=== PATIENT | male | born 1985 | race Two or more races ===

== ENCOUNTER 2018-05-09 08:06 | Emergency (ER) | payer OTHER ==
[~2018-05-09] VITALS: Ht 167.6 cm; Wt 71.7 kg
== END 2018-05-09 14:27 | disposition home or self-care (01) ==
LOC: ER 08:06
DX: R10.84 Generalized abdominal pain (principal)

== ENCOUNTER 2018-05-29 07:21 | Emergency (ER) | payer OTHER ==
[~2018-05-29] VITALS: Ht 160 cm; Wt 68.0 kg
== END 2018-05-29 12:21 | disposition home or self-care (01) ==
LOC: ER 07:21
DX: R10.11 Right upper quadrant pain (principal)

== ENCOUNTER 2018-06-16 07:20 | Outpatient (CLI) | payer OTHER | END 2018-06-16 07:28 | disposition home or self-care (01) | LOC: RAD 07:20 | DX: R05 Cough (principal) ==

== ENCOUNTER → 2018-06-19 | Outpatient (CLI) | payer OTHER | END | disposition home or self-care (01) | LOC: NUCLEAR 08:08 | DX: R10.11 Right upper quadrant pain (principal) | CPT/HCPCS: 78227; A9537 ==

== ENCOUNTER 2018-06-30 07:47 | Day surgery (SDC) | payer OTHER | END 2018-06-30 12:20 | disposition home or self-care (01) | LOC: AMB-ENDOS 07:47 | DX: K64.1 Second degree hemorrhoids (principal) ==

== ENCOUNTER → 2019-01-30 | Outpatient (CLI) | payer OTHER | END | disposition home or self-care (01) | LOC: RAD 14:49 | DX: M54.2 Cervicalgia (principal); E03.8 Other specified hypothyroidism ==